=== PATIENT | male | born 1940 | race Caucasian/White ===

== ENCOUNTER 2024-01-21 15:41 | Emergency (ER) | payer MEDICARE, BC ==
[2024-01-21 16:08] VITALS: BP 118/72; PULSE 62
[2024-01-21] MEDS: Diphtheria,Pertussis(Acell),Tetanus Vaccine 0.5 ML Syringe IM ONE (16:38)
== END 2024-01-21 17:04 | disposition home or self-care (01) ==
LOC: CC.ED 15:41
DX: S61.305A Unspecified open wound of left ring finger with damage to nail, initial encounter (principal); Z23 Encounter for immunization; W18.40XA Slipping, tripping and stumbling without falling, unspecified, initial encounter
CPT/HCPCS: 73140-F8; 90471; 90715; 99283-25